=== PATIENT | male | born 1950 ===

== ENCOUNTER → 2020-01-05 | Emergency (ER) | payer OTHER ==
[~2020-01-05] VITALS: Ht 175.3 cm; Wt 78.0 kg
[~2020-01-05] MED LIST: FORTAMET500 MG; GLIPIZIDE XL10 MG; VASOTEC20 M1
== END | disposition designated cancer center or children's hospital (05) ==
LOC: ER 12:20
DX: K83.1 Obstruction of bile duct (principal); E11.65 Type 2 diabetes mellitus with hyperglycemia; Z79.84 Long term (current) use of oral hypoglycemic drugs